=== PATIENT | male | born 1970 | race Caucasian/White ===

== ENCOUNTER 2020-03-16 07:07 | Day surgery (SDC) | payer BC, SELFPAY ==
[~2020-03-16] VITALS: Ht 182.9 cm; Wt 192.8 kg
[~2020-03-16 07:07] MED LIST: CEFAZOLIN SOD 1 GM in D5W 50 ML IV ONE
[2020-03-16] MEDS ORDERED: POLYMYXIN 500,000/BACIT.10,000 UNITS in NS IRR 1 L IR ONE (08:09)
[2020-03-16] MEDS ORDERED: BUPIVACAINE LIPOSOME/PF 266 MG/20 ML VIAL INFIL ONE (08:09)
[2020-03-16] MEDS ORDERED: LR 1,000 ML IV SCH (10:00)
[2020-03-16] MEDS ORDERED: HYDROmorphone 1 MG INJ. 1 MG/ML AMPUL IVP PRN ×3 (10:00→10:30)
[2020-03-16] MEDS ORDERED: hydrALAZINE HCL 20 MG/ML VIAL IVP PRN (10:00)
[2020-03-16] MEDS ORDERED: ONDANSETRON HCL 4 MG/2 ML VIAL IVP PRN (10:00)
[2020-03-16] MEDS ORDERED: fentaNYL CITRATE/PF 100 MCG/2 ML AMP ONE (10:25)
[2020-03-16] MEDS ORDERED: BUPIVACAINE /PF 0.25% 30 ML VIAL INJ ONE (10:25)
[2020-03-16] MEDS ORDERED: LR 1,000 ML IV.SOLN IV ONE (10:25)
[2020-03-16] MEDS ORDERED: MIDAZOLAM HCL 5 MG/ML VIAL (VERSED) IV ONE (10:25)
[2020-03-16] MEDS ORDERED: NS IRRIG SOLN 1000 ML IR ONE (10:25)
[2020-03-16] MEDS ORDERED: LIDOCAINE 1% 10 MG/ML, 20 ML MDV ONE (10:25)
[2020-03-16] MEDS ORDERED: NS 100 ML BAG ONE (10:25)
[2020-03-16] MEDS ORDERED: HYDROcodone/ACETAMIN 5-325 MG TAB (NORCO/ VICODIN) PO PRN ×2 (10:30)
[2020-03-16] MEDS ORDERED: D5/0.45 NS 1,000 ML IV SCH (10:30)
[2020-03-16 11:40] VITALS: BP_SYST 110
== END 2020-03-16 12:20 | disposition home or self-care (01) ==
LOC: SMU 07:07 → SDS 07:07
PROVIDERS: ATTEND Colon & Rectal Surgery
DX: R22.2 Localized swelling, mass and lump, trunk (principal); G47.33 Obstructive sleep apnea (adult) (pediatric); J45.909 Unspecified asthma, uncomplicated; E66.01 Morbid (severe) obesity due to excess calories; I12.9 Hypertensive chronic kidney disease with stage 1 through stage 4 chronic kidney disease, or unspecified chronic kidney disease; E11.22 Type 2 diabetes mellitus with diabetic chronic kidney disease; N18.30 Chronic kidney disease, stage 3 unspecified; F17.210 Nicotine dependence, cigarettes, uncomplicated; Z79.899 Other long term (current) drug therapy; Z20.828 Contact with and (suspected) exposure to other viral communicable diseases
CPT/HCPCS: 22903; 71045; 82948; 82962; 88305; J0690; J2001; J2250; J3010; J3490; J7060; J7120; U0003; 88304; C9290